=== PATIENT | female | born 1950 | race Caucasian/White ===

== ENCOUNTER → 2017-03-10 | Outpatient (CLI) | payer MEDICARE ==
[2017-03-10 15:25] VITALS: BP 142/71; PULSE 79; TEMP 98; BMI 36.4
[2017-03-10 15:39] LABS: CH 30.3; CHCM 32.6; HCT 39.8 % (34.0-46.0); MCH 30.6 pg (25.0-35.0); MCHC 32.7 g/dL (31.0-37.0); MCV 93.5 fL (80.0-100.0); Mean Platelet Volume 7.2; RBC 4.26 m/uL (3.80-5.40); WBC 6.7 k/uL (3.8-10.6)
[2017-03-10 15:58] LABS: ALT 24 U/L (9-52); AST 17 U/L (14-36); Alkaline Phosphatase 76 U/L (38-126); Anion Gap 9 mmol/L; Blood Urea Nitrogen 16 mg/dL (7-17); Calcium 9.6 mg/dL (8.4-10.2); Carbon Dioxide 28 mmol/L (22-30); Chloride 106 mmol/L (98-107); Glucose 88 mg/dL (74-99); Non-African American GFR(MDRD) >60 (>60 ml/min/1.73 sqM); Potassium 4.6 mmol/L (3.5-5.1); Sodium 143 mmol/L (137-145); Total Bilirubin 0.4 mg/dL (0.2-1.3); Total Protein 7.1 g/dL (6.3-8.2)
--- NOTE | 2017-03-10 15:59 | FL ---
EXAMINATION TYPE: FL barium swallow DATE OF EXAM: 03/10/2017 3:52 PM CLINICAL HISTORY: Dysphagia, gastric sleeve Noted is a gastric sleeve. There is a mild delay and gastroesophageal transit with filling up of dayna um within the esophagus. There is no significant obstruction however. There is a small epiphrenic div erticulum. Mild luminal narrowing is seen at the proximal component of the gastric sleeve at the GE j unction. IMPRESSION: Mild luminal narrowing is noted at the proximal component of the gastric sleeve at the GE junction resulting in mild delay in esophagogastric transit and hang up of contrast within the esoph siva. Small epiphrenic diverticulum.
--- NOTE | 2017-03-10 16:21 | P.HPBAR ---
Bariatric H&P - History & Physicial H&P Date: 03/10/17 History & Physicial: Visit/CC: Patient initial contact: Initial weight: Initial weight in pounds: Height: 5 ft 7 in Initial BMI: Last weight: Current weight: 105.551 kg Current weight in pounds: 232.70 Current BMI: 36.4 [place] body weight (based on NIH guidelines): 61.235 kg Excess body weight loss: The patient is a 66 year-old F who presents for Bariatric Assessment. The patient presents today for sleeve gastric and fall. She has complaints of GERD and dysphagia. Past Medical History Past Medical History: GERD/Reflux History of Any Multi-Drug Resistant Organisms: None Reported Past Surgical History: Appendectomy, Bariatric Surgery, Breast Surgery, Cholecystectomy, Hysterectomy, Orthopedic Surgery, Tonsillectomy Additional Past Surgical History / Comment(s): band removal 2009 sleeve gastrectomy 2013 right knee replacement Past Anesthesia/Blood Transfusion Reactions: No Reported Reaction Past Psychological History: Depression Smoking Status: Never smoker Past Alcohol Use History: None Reported Past Drug Use History: None Reported Surgical - Exam Vital Signs Temp Pulse BP 98.0 F 79 142/71 03/10/17 15:02 03/10/17 15:02 03/10/17 15:02 - General well developed, no distress - Eyes PERRL - ENT normal pinna - Neck no masses - Respiratory normal expansion - Cardiovascular Rhythm: regular - Abdomen Abdomen: soft, non tender Results - Labs 03/10/17 15:20 Bariatric Assessment & Plan Plan: GERD, dysphagia. The patient was sent for esophagram upper GI which showed evidence of some mild proximal sleeve narrowing. The patient be scheduled for EGD. Bariatric Checklist Checklist: Plan: Checklist: EGD: 1. Hiatal hernia: 2. H. Pylori: HgbA1c: Vitamin D: Smoking: Never smoker Primary care physician referral: Psychiatry clearance: Cardiology clearance: Sleep study: Diet journal: VTE risk score: VTE risk level: Rehab needs at discharge:
[2017-03-10 16:47] LABS: Vitamin B12 289 pg/mL (239-931)
== END | disposition home or self-care (01) ==
LOC: BARWHC3 14:47
PROVIDERS: ATTEND Surgery
DX: K22.5 Diverticulum of esophagus, acquired (principal); K21.9 Gastro-esophageal reflux disease without esophagitis; F32.9 Major depressive disorder, single episode, unspecified; R13.10 Dysphagia, unspecified; Z98.84 Bariatric surgery status
CPT/HCPCS: 84425; 80053; 82607; 84443; 85027; 82306; 74220; G0463; 99211

== ENCOUNTER 2017-03-12 11:24 | Day surgery (SDC) | payer MEDICARE ==
[2017-03-12] MEDS ORDERED: LIDOCAINE 1% 20 ML VIAL (10MG/ML) FOR IV START INTRADERMA PRN (11:34)
[2017-03-12] MEDS ORDERED: LACTATED RINGERS 1,000 ML IV SCH (11:34)
[2017-03-12 11:44] VITALS: RESP 18; TEMP 97.3
[2017-03-12] MEDS ORDERED: PROPOFOL 10 MG/ML 20 ML VIAL IV ONE (12:54)
--- NOTE | 2017-03-12 13:01 | P.GSHP ---
History of Present Illness H&P Date: 03/12/17 Chief Complaint: GERD 's is a 66-year-old female who presents today for EGD with balloon dilatation. She's had appears gastric sleeve his had some trouble with dysphagia. Her recent esophagram upper GI shows some potential narrowing of the proximal gastric sleeve. - Constitutional Constitutional: Reports as per HPI Past Medical History Past Medical History: GERD/Reflux Additional Past Medical History / Comment(s): HX KIDNEY STONE, CURENT COUGH NO FEVER THINKS ALLERGIES History of Any Multi-Drug Resistant Organisms: None Reported Past Surgical History: Appendectomy, Bariatric Surgery, Breast Surgery, Cholecystectomy, Hysterectomy, Orthopedic Surgery, Tonsillectomy Additional Past Surgical History / Comment(s): band removal 2010 sleeve gastrectomy 2014 right knee replacement Past Anesthesia/Blood Transfusion Reactions: No Reported Reaction Past Psychological History: Depression Smoking Status: Never smoker Past Alcohol Use History: None Reported Past Drug Use History: None Reported Medications and Allergies Home Medications Medication Instructions Recorded Confirmed Type Aspirin 1 tab PO DAILY 03/10/17 03/12/17 History Escitalopram [Lexapro] 1 tab PO DAILY 03/10/17 03/12/17 History Raloxifene [Evista] 1 tab PO DAILY 03/10/17 03/12/17 History Ranitidine HCl [Zantac] 1 tab PO HS 03/10/17 03/12/17 History Prilosec(Unknown) 1 tab PO DAILY PRN 03/12/17 03/12/17 History guaiFENesin-DM 600/30MG [Mucinex 1 each PO Q12HR PRN 03/12/17 03/12/17 History Dm] Allergies Allergy/AdvReac Type Severity Reaction Status Date / Time codeine Allergy Swelling Verified 03/10/17 15:03 Surgical - Exam Vital Signs Temp Pulse Resp BP Pulse Ox 97.3 F L 72 18 123/77 95 03/12/17 11:43 03/12/17 11:43 03/12/17 11:43 03/12/17 11:43 03/12/17 11:43 - General well developed - Eyes PERRL - ENT normal pinna - Neck no masses - Respiratory normal expansion - Cardiovascular Rhythm: regular - Abdomen Abdomen: soft, non tender Assessment and Plan Plan: GERD. We'll perform EGD with balloon dilatation of gastric sleeve.
--- NOTE | 2017-03-12 13:12 | P.OP ---
Date of Procedure: 03/12/17 Preoperative Diagnosis: GERD Dysphagia Postoperative Diagnosis: Possible sleeve stricture Procedure(s) Performed: EGD with balloon dilatation Anesthesia: MAC Surgeon: Anselmo Salazar Pathology: none sent Condition: stable Disposition: PACU Description of Procedure: The patient's placed on the endoscopy table in the lateral position. And IV sedation. The gastroscope some placed oropharynx passed in the esophagus and into the stomach. The scope was then placed through the pylorus. The first and second portion of duodenum appeared normal. The scope was then brought back and the antrum and this appeared normal. Scope was then brought back through the gastric sleeve in the proximal gastric sleeve appeared to be a slight narrowing. The 12 mm balloon was placed across this and held in position for 3 minutes. The remainder some appeared normal. The GE junction was at 47 is. The distal esophagus appeared normal. The proximal esophagus appeared normal. The scope was withdrawn for patient.
[2017-03-12 13:33] VITALS: BP 126/84; PULSE 72
== END 2017-03-12 14:08 | disposition home or self-care (01) ==
LOC: ORWHC2ENDO 11:24
PROVIDERS: ATTEND Surgery
DX: Z98.84 Bariatric surgery status (principal); K95.89 Other complications of other bariatric procedure; K21.9 Gastro-esophageal reflux disease without esophagitis; J06.9 Acute upper respiratory infection, unspecified; Z79.82 Long term (current) use of aspirin; Z79.890 Hormone replacement therapy; Z79.899 Other long term (current) drug therapy; Z88.5 Allergy status to narcotic agent; Z91.09 Other allergy status, other than to drugs and biological substances
CPT/HCPCS: 43245; J2704; C1726; 43249

== ENCOUNTER → 2017-04-07 | Outpatient (CLI) | payer MEDICARE ==
[2017-04-07 13:59] VITALS: BP 136/88; PULSE 80; RESP 16; TEMP 98.4; BMI 36.5
--- NOTE | 2017-04-07 16:01 | P.HPBAR ---
Bariatric H&P - History & Physicial H&P Date: 04/07/17 History & Physicial: Visit/CC: Sleeve Stretch fu Patient initial contact: Initial weight: 105.375 kg Initial weight in pounds: 232.00 Height: 5 ft 7 in Initial BMI: 36.3 Last weight: Current weight: 105.857 kg Current weight in pounds: 233.00 Current BMI: 36.5 [place] body weight (based on NIH guidelines): 61.235 kg Excess body weight loss: The patient is a 66 year-old F who presents for Bariatric Assessment. The patient states that she has some mild dysphagia. She's had no significant weight loss since her last visit. Patient had a previous EGD with balloon dilatation of her gastric sleeve. Past Medical History Past Medical History: GERD/Reflux Additional Past Medical History / Comment(s): HX KIDNEY STONE, CURENT COUGH NO FEVER THINKS ALLERGIES History of Any Multi-Drug Resistant Organisms: None Reported Past Surgical History: Appendectomy, Bariatric Surgery, Breast Surgery, Cholecystectomy, Hysterectomy, Orthopedic Surgery, Tonsillectomy Additional Past Surgical History / Comment(s): band removal 2009 sleeve gastrectomy 2014 right knee replacement Past Anesthesia/Blood Transfusion Reactions: No Reported Reaction Past Psychological History: Depression Smoking Status: Never smoker Past Alcohol Use History: None Reported Past Drug Use History: None Reported Surgical - Exam Vital Signs Temp Pulse Resp BP 98.4 F 80 16 136/88 04/07/17 13:56 04/07/17 13:56 04/07/17 13:56 04/07/17 13:56 - General well developed, no distress - Eyes PERRL - ENT normal pinna - Neck no masses - Respiratory normal expansion - Cardiovascular Rhythm: regular - Abdomen Abdomen: soft, non tender Bariatric Assessment & Plan Plan: Status post sleeve was subsequently EGD balloon dilatation. Patient has minimal dysphasia. I've asked her to change her diet to avoid foods which cause dysphagia. She'll follow-up in one month for recheck. Bariatric Checklist Checklist: Plan: Checklist: EGD: 1. Hiatal hernia: 2. H. Pylori: HgbA1c: Vitamin D: Smoking: Never smoker Primary care physician referral: Psychiatry clearance: Cardiology clearance: Sleep study: Diet journal: VTE risk score: VTE risk level: Rehab needs at discharge:
== END | disposition home or self-care (01) ==
LOC: BARWHC3 13:32
PROVIDERS: ATTEND Surgery
DX: R13.10 Dysphagia, unspecified (principal); F32.9 Major depressive disorder, single episode, unspecified; Z98.84 Bariatric surgery status
CPT/HCPCS: 99211

== ENCOUNTER → 2019-12-25 | Outpatient (CLI) | payer MEDICARE ==
--- NOTE | 2019-12-25 17:38 | MR ---
EXAMINATION TYPE: MR cervical spine wo con DATE OF EXAM: 12/25/2019 COMPARISON: None HISTORY: Neck pain, down back Multiplanar multiecho imaging of the cervical spine was performed with no contrast. Vertebra have normal alignment. There is degenerative disc space narrowing from C4 to C7 with spurrin g of the endplates. Cervical spinal cord has normal signal pattern. There is no edema. There is hyper trophic multilevel cervical facet arthropathy. Brainstem appears intact. There is developmentally deuce quate spinal canal. The spinal canal is narrowed to 7.5 mm at C5-6 and C4-5. There is no cervical cor d edema. I see no focal bone destruction. IMPRESSION: Spondylosis with posterior endplate spurring and disc herniation at C4-5 and C5-6. There is minimal c ervical spinal stenosis at these 2 levels due to disc herniations.
== END ==
LOC: RADMRIMAIN 10:34
PROVIDERS: ATTEND Psychiatry & Neurology Neurology
DX: M48.02 Spinal stenosis, cervical region (principal); M50.221 Other cervical disc displacement at C4-C5 level; M47.812 Spondylosis without myelopathy or radiculopathy, cervical region
CPT/HCPCS: 72141